=== PATIENT | female | born 1955 | race African-American/Black ===

== ENCOUNTER 2017-01-31 11:01 | Emergency (ER) | payer MEDICAID ==
[~2017-01-31] VITALS: Ht 165.1 cm; Wt 90.0 kg
[2017-01-31] MEDS ORDERED: OXYC-23 PO (11:10)
[2017-01-31] MEDS ORDERED: HYDR-523 PO (11:11)
[2017-01-31] MEDS ORDERED: ALPR0.2582 PO (11:11)
[2017-01-31] MEDS ORDERED: SODIUM CHLORIDE 0.9% 1,000 ML IV ONE (11:28)
[2017-01-31] MEDS ORDERED: ONDANSETRON HCL 4MG/2ML VIAL IV STA (11:28)
[2017-01-31] MEDS ORDERED: FAMOTIDINE 20MG/2ML VIAL IV ONE (11:30)
[2017-01-31] MEDS ORDERED: MAGNESIUM/ALUMINUM HYDROXIDE/SIMETHICONE 30ML UDC PO ONE (11:30)
[2017-01-31 12:17] LABS: BASOPHILS % 0.5 % (0.0-2.0); EOSINOPHILS % 0.7 % (0.0-5.0); HEMOGLOBIN. 12.5 g/dL (12.0-16.0); LYMPHOCYTES % 16.9 % (20.0-50.0); MEAN CORPUSCULAR HEMOGLOBIN 27.6 pg (28.0-32.0); MEAN CORPUSCULAR VOLUME 86.1 fL (81.0-99.0); MEAN PLATELET VOLUME 8.6 fl (7.4-10.4); MONOCYTES % 4.1 % (2.0-8.0); NEUTROPHILS % 77.8 % (40.0-76.0); PLATELET 232 x1000/uL (130-400); RED BLOOD CELL COUNT 4.53 mill/uL (4.2-5.4); RED CELL DISTRIBUTION WIDTH 16.6 % (11.6-14.6)
[2017-01-31 12:35] LABS: AMMONIA < 10 uMol/L (<32); INDEX HEMOLYSI 1 (1-3)
[2017-01-31 12:37] LABS: ALANINE AMINOTRANSFERASE 20 IU/L (13-61); ALBUMIN 3.5 g/dL (3.4-5.0); ANION GAP 12; CARBON DIOXIDE 25 mEq/L (21-32); CHLORIDE 110 mEq/L (98-107); ETHANOL BLOOD < 10 mg/dL; INDEX HEMOLYSI 1 (1-3); INDEX ICTERIC 1 (1-4); INDEX LIPEMIC 1 (1-3); LIPASE 197 IU/L (73-393); UREA NITROGEN BLOOD 21 mg/dL (7-21); eGFR > 60 mL/min (>60)
[2017-01-31 12:38] LABS: CREATINE KINASE 118 IU/L (26-192); TROPONIN I 0.03 ng/mL (0.00-0.04)
[2017-01-31 12:40] LABS: PHENYTOIN < 0.4 ug/mL (10-20)
[2017-01-31 12:45] LABS: CARBAMAZEPINE < 0.5 ug/mL (4-12); PHENOBARBITAL < 2.1 ug/mL (15.0-40.0); VALPROIC ACID < 3.0 ug/mL (50-100)
[2017-01-31 12:53] VITALS: BP 129/81
[2017-01-31] MEDS ORDERED: HEPARIN 25,000 UNITS PREMIX 500 ML IV PRN (13:00)
[2017-01-31] MEDS ORDERED: KCL 20MEQ/100ML PREMIX 100 ML IV ONE (13:00)
[2017-01-31] MEDS ORDERED: HEPARIN 5000 UNITS/ML VIAL IV SCH (13:00)
[2017-01-31] MEDS ORDERED: MORPHINE SULFATE 4 MG/ML CPJ (NOT FOR IM USE) IV ONE ×2 (13:00→13:30)
[2017-01-31] MEDS ORDERED: ASPIRIN 325MG EC TABLET PO ONE (13:00)
[2017-01-31] MEDS ORDERED: PIPERACILLIN/TAZ 3.375G PREMIX 50 ML IV ONE (13:30)
[2017-01-31] MEDS ORDERED: ONDANSETRON HCL 4MG/2ML VIAL IV ONE (13:30)
[2017-01-31 14:19] LABS: PARTIAL THROMBOPLASTIN TIME 25.4 sec (24.0-34.0); PROTHROMBIN TIME 10.7 sec
== END 2017-01-31 13:30 | disposition short-term general hospital (02) ==
LOC: ER 11:13
DX: I21.4 Non-ST elevation (NSTEMI) myocardial infarction (principal); G93.49 Other encephalopathy; R11.2 Nausea with vomiting, unspecified; R91.8 Other nonspecific abnormal finding of lung field; M19.90 Unspecified osteoarthritis, unspecified site; Z87.19 Personal history of other diseases of the digestive system
CPT/HCPCS: 36415; 71010; 80053; 80156; 80165; 80184; 80185; 82140; 82550; 83690; 84443; 84484; 85025; 85610; 85730; 93005; 96374; 96375; 99285; G0482; J1644; J2270; J2405; J3480; J3490; J7030; Z7610